=== PATIENT | female | born 1960 | race Caucasian/White ===

== ENCOUNTER 2022-10-20 19:35 | Inpatient (IN) ==
[2022-10-21] MEDS ORDERED: Dextrose 50% Syringe 50 ml 25 GM/50 ML SYRINGE IV PUSH PRN (02:46)
[2022-10-21] MEDS ORDERED: Ondansetron 4 mg VIAL 2 MG/ML 2 ml VIAL IV PRN (03:11)
[2022-10-21 07:21] LABS: ABS Lymphocytes 1.7 10^3/uL (1.0-4.8); ABS Monocytes 0.9 10^3/uL (0.0-0.9); ABS Neutrophils 7.4 10^3/uL (1.5-7.6); Eosinophil % 0.1 %; Hematocrit 37.9 % (35-45); Hemoglobin 12.9 g/dL (11.5-14.3); Lymphocyte % 16.5 %; Mean Corpuscular Hemoglobin 29.2 pg (27-33); Mean Corpuscular Hgb Conc 34.1 g/dL (31-36); Mean Corpuscular Volume 85.7 fL (80-97); Mean Platelet Volume 7.7 fL (7.5-11.2); Platelet Count 209 10^3/uL (150-450); Red Blood Count 4.42 10^6/uL (3.63-4.92); Red Cell Distribution Width 14.1 % (12-17)
[2022-10-21 07:56] LABS: Albumin 4.2 g/dL (3.2-5.2); Calcium 9.4 mg/dL (8.6-10.3); Creatinine, Serum 0.69 mg/dL (0.51-0.95); Globulin 2.1 g/dL (2-4); Potassium 4.2 mmol/L (3.5-5.0); Total Bilirubin 0.5 mg/dL (0.2-1.0); Total Protein 6.3 g/dL (6.4-8.9); eGFR CKD-EPI 99.3 (>60)
[2022-10-21] MEDS ORDERED: Enoxaparin 40 MG/0.4 ML SYR SUBCUT SCH (09:00)
[2022-10-21] MEDS: [UNRECOGNIZED DRUG - MIXTURE] PO SCH (14:43)
[2022-10-21] MEDS ORDERED: Polyethylene Glycol 3350 17 GM PACKET PO PRN (15:02)
[2022-10-21] MEDS ORDERED: Senna TAB 8.6 mg TAB PO PRN (15:03)
[2022-10-21] MEDS ORDERED: Morphine 2 MG/ML SYRINGE IV PRN (15:03)
[2022-10-22] MEDS: [UNRECOGNIZED DRUG - MIXTURE] PO SCH (09:32)
[2022-10-23] MEDS ORDERED: Lactated Ringers 1000 ml BAG 1,000 ML IV ONE (06:00)
[2022-10-23 06:22] LABS: ABS Eosinophils 0.1 10^3/uL (0.0-0.5); ABS Lymphocytes 2.4 10^3/uL (1.0-4.8); ABS Monocytes 0.6 10^3/uL (0.0-0.9); ABS Neutrophils 3.7 10^3/uL (1.5-7.6); ABS Nucleated RBC 0.01 10^3/ul; Eosinophil % 1.1 %; Hematocrit 41.8 % (35-45); Hemoglobin 14.1 g/dL (11.5-14.3); Lymphocyte % 35.4 %; Mean Corpuscular Hemoglobin 29.1 pg (27-33); Mean Corpuscular Hgb Conc 33.8 g/dL (31-36); Mean Corpuscular Volume 86.3 fL (80-97); Mean Platelet Volume 7.9 fL (7.5-11.2); Nucleated Red Blood Cells % 0.1 /100 WBC (0.0-0.4); Platelet Count 237 10^3/uL (150-450); Red Blood Count 4.84 10^6/uL (3.63-4.92); Red Cell Distribution Width 13.9 % (12-17); White Blood Count 6.8 10^3/uL (3.8-11.8)
[2022-10-23 06:47] LABS: Calcium 9.4 mg/dL (8.6-10.3); Creatinine, Serum 0.69 mg/dL (0.51-0.95); Magnesium 2.1 mg/dL (1.9-2.7); eGFR CKD-EPI 99.3 (>60)
[2022-10-23] MEDS ORDERED: oxyCODONE/Acetamin 5/325 mg TAB PO PRN (10:00)
[2022-10-23] MEDS ORDERED: fentaNYL 100 mcg/2 ml 50 MCG/ML VIAL IV PRN (10:00)
[2022-10-23] MEDS ORDERED: Ondansetron 4 mg VIAL 2 MG/ML 2 ml VIAL IV PRN (10:00)
[2022-10-23] MEDS ORDERED: Naloxone 0.4 mg VIAL 0.4 mg/ml 1 ml VIAL IV PRN (10:00)
[2022-10-23] MEDS ORDERED: ceFAZolin 2 GM in NS PREMIX 2 GM/100 ML BAG IVPB ONE (11:43)
[2022-10-23] MEDS ORDERED: Prochlorperazine 5 mg/ml 2 ml VIAL (10 mg) IV PRN (13:00)
[2022-10-23] MEDS ORDERED: Morphine 4 MG/ML VIAL (1 ml) IV PRN (13:00)
[2022-10-23] MEDS ORDERED: Midazolam 2 mg/2 ml VIAL 1 mg/ml 2 ml VIAL (2 mg) ONE (13:01)
[2022-10-23] MEDS ORDERED: fentaNYL 100 mcg/2 ml 50 MCG/ML VIAL ONE ×2 (13:10→17:39)
[2022-10-23] MEDS ORDERED: Rocuronium 50 mg VIAL 10 mg/ml 5 ml VIAL (50 mg) ONE (13:11)
[2022-10-23] MEDS ORDERED: Lidocaine 2% PF 5 ML VIAL ONE (13:12)
[2022-10-23] MEDS ORDERED: Propofol 10 MG/ML 20 ML BTL ONE (13:12)
[2022-10-23] MEDS ORDERED: Dexamethasone IV 4 MG/ML VIAL 1 ml VIAL ONE (15:00)
[2022-10-23] MEDS ORDERED: Ondansetron 4 mg VIAL 2 MG/ML 2 ml VIAL ONE (15:00)
[2022-10-23] MEDS ORDERED: HYDROmorphone 0.5 MG/0.5 ML SYRINGE ONE (16:19)
[2022-10-23] MEDS ORDERED: Acetaminophen IV 1 GM/100ML 1,000 MG/100 ML BAG IV ONE (16:47)
[2022-10-23] MEDS: fentaNYL 100 mcg/2 ml 50 MCG/ML VIAL IV PRN ×2 (17:41→17:46)
[2022-10-23] MEDS: Acetaminophen IV 1 GM/100ML 1,000 MG/100 ML BAG IV PRN (23:16)
[2022-10-24] MEDS ORDERED: Morphine 2 MG/ML SYRINGE IV ONE (04:46)
[2022-10-24] MEDS: Acetaminophen IV 1 GM/100ML 1,000 MG/100 ML BAG IV PRN (06:23)
[2022-10-24 07:04] LABS: ABS Basophils 0.1 10^3/uL (0.0-0.1); ABS Lymphocytes 1.4 10^3/uL (1.0-4.8); ABS Neutrophils 6.5 10^3/uL (1.5-7.6); Eosinophil % 0.1 %; Hematocrit 38.6 % (35-45); Hemoglobin 12.8 g/dL (11.5-14.3); Lymphocyte % 15.8 %; Mean Corpuscular Hemoglobin 28.8 pg (27-33); Mean Corpuscular Hgb Conc 33.3 g/dL (31-36); Mean Corpuscular Volume 86.5 fL (80-97); Mean Platelet Volume 7.6 fL (7.5-11.2); Platelet Count 214 10^3/uL (150-450); Red Blood Count 4.47 10^6/uL (3.63-4.92); Red Cell Distribution Width 13.9 % (12-17); White Blood Count 9.1 10^3/uL (3.8-11.8)
[2022-10-24 07:24] LABS: Creatinine, Serum 0.6 mg/dL (0.51-0.95); Potassium 4.3 mmol/L (3.5-5.0); eGFR CKD-EPI 102.7 (>60)
[2022-10-24 16:14] VITALS: BP 111/68
== END 2022-10-24 15:55 | disposition home or self-care (01) | DRG 313 ==
LOC: ED 19:35 → EDHOLD 10-21 01:04 → MEDTELE 10-21 12:35
PROVIDERS: ADMIT Hospitalist; ATTEND Hospitalist